=== PATIENT | male | born 1955 | race Caucasian/White ===

== ENCOUNTER 2018-08-20 04:22 | Inpatient (IN) | payer BC ==
[~2018-08-20] VITALS: Ht 177.8 cm; Wt 112.0 kg
[~2018-08-20 04:22] MED LIST: ACET500; ALBU90I INH; AMOCLA875 PO; CIPR250 PO; DOXY100 PO; HYDACE5 PO; IBUP200; IBUP800; METR500 PO; OXYACE7.5T PO; PRED10 PO; RXOXYACE PO; SULTRIDS PO
[2018-08-20 05:17] LABS: BASOPHILS ABSOLUTE AUTO 0.03 K/mm3 (0.00-0.23); BASOPHILS PERCENT AUTO 0 % (0-2); EOSINOPHILS ABSOLUTE AUTO 0.06 K/mm3 (0.00-0.68); EOSINOPHILS PERCENT AUTO 1 % (0-6); Hematocrit 41.9 % (37.0-53.0); Hemoglobin 13.8 g/dL (13.5-17.5); IMMATURE GRAN ABSOLUTE AUTO 0.08 K/mm3 (0.00-0.10); IMMATURE GRAN PERCENT AUTO 1 % (0-1); LYMPHOCYTES ABSOLUTE AUTO 1.63 K/mm3 (0.84-5.20); LYMPHOCYTES PERCENT AUTO 17 % (21-46); MONOCYTES ABSOLUTE AUTO 0.97 K/mm3 (0.16-1.47); MONOCYTES PERCENT AUTO 10 % (4-13); Mean Corpuscular HGB 32.1 pg (26.0-34.0); Mean Corpuscular HGB Conc 32.9 g/dL (31.5-36.5); Mean Corpuscular Volume 97 fL (80-100); Mean Platelet Volume 11.1 fL (9.1-12.4); NEUTROPHILS ABSOLUTE AUTO 6.88 K/mm3 (1.96-9.15); NEUTROPHILS PERCENT AUTO 71 % (41-73); Platelet Count 313 K/mm3 (150-400); RDW Coefficient Variation 12.6 % (11.7-14.2); RDW Standard Deviation 45.2 fL (35.1-46.3); White Blood Cell Count 9.65 K/mm3 (4.00-11.30)
[2018-08-20 05:39] LABS: Alanine Aminotransfer (ALT/SGP 28 U/L (12-78); Albumin/Globulin Ratio 0.7 (0.8-1.8); Alk Phos 68 U/L (50-136); Anion Gap 7 mmol/L (6-16); Aspartate Aminotrans (AST/SGOT 14 U/L (12-37); Bilirubin, Total 0.4 mg/dL (0.1-1.0); Blood Urea Nitrogen 15 mg/dL (8-24); Bun/Creatinine Ratio 17.9 (12.0-20.0); CO2, Blood 24 mmol/L (21-32); Calcium, Blood 8.4 mg/dL (8.5-10.1); Chloride, Blood 112 mmol/L (98-108); Creatinine, Blood 0.84 mg/dL (0.60-1.20); Globulin, Blood 4.1 g/dL (2.2-4.0); Glomerular Filtration Rate >60 (60-); Glucose, Blood 103 mg/dL (70-99); Potassium, Blood 4.2 mmol/L (3.5-5.5); Sodium, Blood 143 mmol/L (136-145); Total Protein, Blood 7.1 g/dL (6.4-8.2); Troponin I 0.029 ng/mL (0.000-0.040)
[2018-08-20 05:44] LABS: International Normalized Ratio 0.96; Prothrombin Time Results 10.2 Sec (9.7-11.5)
--- NOTE | 2018-08-20 09:44 | NUR ---
0900 ADMIT NOTE... PT WAS ADMITTED TO ICU-9 AND TRANFERED TO BED PER SELF. CARDIZEM GTT AT 15MG VIA L AC SITE. PT RYTHUM NOTED AND IS A. FLUTTER/FIB. PT INDICATES HE HAS HAD CHEST PAIN DURING THE LAST 2 WEEKS AND TODAY BUT NONE AT THIS TIME. PT HAS HAD A DRY NONPRODUCTIVE COUGH DURING ALL ILLNESS EPISODE. PT ALSO INDICATES HE HAS BEEN GOING TO WORK BUT WAS NOT SLEEPING AT NOC AND SOB PERSISTING CAME TO ED. INFLUENZA SWAB DONE ON ADMIT TO ICU. PT FEELS NEED TO VOID SOON. HAS NOT BEEN EATING NORMAL OR WELL LAST 2+ WEEKS. PT HAS CELL PHONE, KEYS, WALLET, GLASSES AND PT WILL COME IN AND HE WILL SEND HOME WITH HER. VS NOTED AND NO CURRENT DISTRESS.
[2018-08-20 09:57] LABS: Influenza A Negative (NEGATIVE); Influenza B Negative (NEGATIVE)
--- NOTE | 2018-08-20 10:36 | NUR ---
Echocardiogram completed.
--- NOTE | 2018-08-20 10:57 | NUR ---
PT EDUCATION GIVEN RE STOPPING SMOKING, PT EXPRESSED INTEREST AND WILLINGNESS AT THIS TIME.
--- NOTE | 2018-08-20 17:43 | NUR ---
PT AND WERE EDUCATED RE CHF AND ISSUES TO ASSIST IN PT RECOVERY AND MANAGEMENT. PT HAS JUST BEEN GIVEN PO CARDEZEM AND WILL STOP IV GTT APPROX. 1 HOUR AFTER THIS DOSE. PT IS TAKING PO WELL. VOIDING W/O DISTRESS OR PROBLEM. PT CONT TO HAVE DRY COUGH, NONPRODUCTIVE, NO RETURNING CHEST PAIN. APPROX [id number] PT WAS NOTED TO BE ATTEMPTING TO CONVERT TO NSR, SEE RHYTHUM STRIPS. AT THIS POINT PT IS IN CONTINUAL NSR WITH HR 70-80. BP IS SL ELEVATED NOTED.
--- NOTE | 2018-08-20 19:30 | NUR ---
CARE ASSUMED REPORT RECEIEVED, CARE ASSUMED AT 1900. PT RESTING QUIETLY IN BED, AROUSES EASILY UPON ENTERING ROOM. VITALS STABLE. MONITOR SHOWS NORMAL SINUS RHYTHM RATE 70'S-80. PT EDUCATED ON FALL PREVENTION AND STAND BY ASSIST FOR ADL'S AND DECLINES STATING, "I HAVE BEEN DOING IT ON MY OWN." ENCOURAGED PT TO TAKE SLOWLY AND CALL IF HE FEELS DIZZY OR SHORT OF BREATH. PT AGREEABLE. PT HAS DRY, HACKING, HARSH COUGH AND WHEEZES THROUGHOUT. 02 SAT'S GREATER THAN 90 ON ROOM AIR. PT LEFT WITH CALL LIGHT IN REACH, BED IN LOWEST POSITION.
--- NOTE | 2018-08-20 20:04 | NUR ---
CT SCAN PT TO CT WITH RETAIL ASSET PROTECTION SPECIALIST. PT TO TELEMETRY BOX, CONFIRMED WITH KATHY Riggins PCU ECHO VASCULAR TECH. STAND AND TRANSFER TO WHEELCHAIR.
--- NOTE | 2018-08-20 20:18 | NUR ---
RETURN FROM CT PT RETURNED FROM CT. STANDBY ASSIST BACK TO BED. DECLINES NEEDS AT THIS TIME.
[2018-08-21 03:30] LABS: BASOPHILS ABSOLUTE AUTO 0.04 K/mm3 (0.00-0.23); BASOPHILS PERCENT AUTO 0 % (0-2); EOSINOPHILS ABSOLUTE AUTO 0.11 K/mm3 (0.00-0.68); EOSINOPHILS PERCENT AUTO 1 % (0-6); Hematocrit 40.5 % (37.0-53.0); Hemoglobin 12.8 g/dL (13.5-17.5); IMMATURE GRAN ABSOLUTE AUTO 0.09 K/mm3 (0.00-0.10); IMMATURE GRAN PERCENT AUTO 1 % (0-1); LYMPHOCYTES PERCENT AUTO 21 % (21-46); MONOCYTES ABSOLUTE AUTO 0.99 K/mm3 (0.16-1.47); MONOCYTES PERCENT AUTO 11 % (4-13); Mean Corpuscular HGB 31.7 pg (26.0-34.0); Mean Corpuscular HGB Conc 31.6 g/dL (31.5-36.5); Mean Platelet Volume 10.8 fL (9.1-12.4); NEUTROPHILS ABSOLUTE AUTO 5.96 K/mm3 (1.96-9.15); NEUTROPHILS PERCENT AUTO 66 % (41-73); Platelet Count 309 K/mm3 (150-400); RDW Coefficient Variation 12.8 % (11.7-14.2); RDW Standard Deviation 47.9 fL (35.1-46.3); Red Blood Cell Count 4.04 M/mm3 (4.30-5.90); White Blood Cell Count 9.09 K/mm3 (4.00-11.30)
[2018-08-21 03:32] LABS: Mean Corpuscular Volume 100 fL (80-100)
[2018-08-21 03:50] LABS: Alanine Aminotransfer (ALT/SGP 27 U/L (12-78); Albumin, Blood 3.1 g/dL (3.4-5.0); Albumin/Globulin Ratio 0.8 (0.8-1.8); Alk Phos 59 U/L (50-136); Anion Gap 7 mmol/L (6-16); Aspartate Aminotrans (AST/SGOT 13 U/L (12-37); Bilirubin, Total 0.9 mg/dL (0.1-1.0); Blood Urea Nitrogen 19 mg/dL (8-24); Bun/Creatinine Ratio 18.6 (12.0-20.0); CO2, Blood 27 mmol/L (21-32); Calcium, Blood 8.3 mg/dL (8.5-10.1); Chloride, Blood 108 mmol/L (98-108); Creatinine, Blood 1.02 mg/dL (0.60-1.20); Globulin, Blood 3.8 g/dL (2.2-4.0); Glomerular Filtration Rate >60 (60-); Glucose, Blood 94 mg/dL (70-99); Magnesium, Blood 2.1 mg/dL (1.6-2.4); Potassium, Blood 3.7 mmol/L (3.5-5.5); Sodium, Blood 142 mmol/L (136-145); Total Protein, Blood 6.9 g/dL (6.4-8.2)
--- NOTE | 2018-08-21 07:34 | NUR ---
SUMMARY NO ACUTE CHANGES THROUGHOUT NIGHT. PT HAS REMAINED IN NORMAL SINUS RHYTHM THROUGHOUT SHIFT. VITALS STABLE, THOUGH BLOOD PRESSURE HAS BEEN ELEVATED THROUGHOUT NIGHT. PT HAS SLEPT SOUNDLY, AROUSING EASILY FOR REASSESSMENTS. REPORT TO YAJAIRA BELTRÁN TO ASSUME CARE.
--- NOTE | 2018-08-21 09:10 | NUR ---
DR. BOYER AT BEDSIDE FOR EVALUATION. INFORMED DR. BOYER OF ELEVATED BP'S, WILL PLACE ORDER FOR MEDICATIONS TO CONTROL BP. NEW ORDER FOR STATUS CHANGE TO MEDICAL WITH TELEMETRY.
--- NOTE | 2018-08-21 11:21 | NUR ---
Initial Visit: Palliative care consult received for advanced care planning, cardiac, new diagnosis. Pt is alert, oriented, pleasant. He reports that he does not have pain, but he does feel "just a little" heavy in the chest - he reports that this is not new, and it has been a symptom for the last 3 weeks - it is improving. Pt breathing easily at this time. Reviewed CHF, afib with patient. Explained EF and overall heart picture. Reviewed risks of the disease, risk of not taking medications and not having a PCP. Advised that he will need to be on medications everyday to preserve his remaining heart function, that he will need to be vigilant to protect his heart. Discussed fluid collection r/t CHF, frequent weighing, reporting changes or concerns to PCP right away. He verbalizes understanding. He is hoping that he will only need to see the doctor once every year. I tell him that doctors have different requirements, depends on symptoms and stable disease. Suggested also that he quit smoking. He states, "I think I've already done that. It's been 3 weeks because if you can't breathe, you can't smoke!" Will remain avialable.
--- NOTE | 2018-08-21 12:37 | NUR ---
Jose is Episcopal and responded well to me. He tells me he is not used to being sick. "I don't even have a doctor." He admits his new heart issues are hindering his active life. He is more irritated than worried. He has a good marriage and enjoys spending time with his adult children and grandkids. He also admits he does not want his illness to change anything. When I asked if he meant he intended to be noncompliant with physician's reccomendations, he says again he does not want illness to limit or change his lifestyle. He tells me he is not afraid of and knows where he is going when he dies. He does not like being hospitalized. All that said, he was soft-spoken and pleasant. He allowed me to pray for him. I will remain available to pt and family.
--- NOTE | 2018-08-21 21:00 | NUR ---
CARE ASSUMED REPORT RECEIVED, CARE ASSUMED AT 1900. VITALS STABLE. PT PROVIDED WITH SNACK, DENIES FURTHER NEEDS. SEE ASSESSMENT. IN AND OUT THROUGHOUT EVENING.
--- NOTE | 2018-08-21 21:30 | NUR ---
MEDICATION CONCERNS PER PATIENT PT CONCERNED ABOUT RUIZ OF ANTICOAGULATION THERAPY. PT REQUESTED THAT MD BE COMMUNICATED WITH REGARDING DISCHARGE MEDICATIONS AND POSSIBLE THERAPY OPTIONS. PT ALSO STATED HE WOULD DISCUSS WITH MD DURING ROUNDING. PT STATES HE WILL HAVE COMPLIANCE ISSUES IF HE IS UNABLE TO FIND A ANTICOAGULATION OPTION THAT IS COVERED BY HIS INSURANCE AND COST EFFECTIVE. WILL DISCUSS WITH DAY SHIFT RN TO FOLLOW UP WITH PRIMARY DAY SHIFT HOSPITALIST.
--- NOTE | 2018-08-22 01:14 | NUR ---
EDUCATION - MEDS/DIAGNOSIS DURING MEDICATION ADMINISTRATION PT DENIES UNDERSTANDING OF MEDICATIONS. PROVIDED WITH EDUCATION MULTIPLE TIMES THROUGH. DISCUSSED ATRIAL FIBRILLATION, HIGH BLOOD PRESSURE, CARDIAC DIET WITH PATIENT. PT STATES HE DOES NOT KNOW THE DIFFERENCE BETWEEN BLOOD PRESSURE AND HEART RATE. PT EDUCATED VERBALLY BUT UNABLE TO RE-STATE EDUCATION. CLINICAL GOMEZ PATIENT EDUCATION HANDOUT PROVIDED ON HYPERTENSION, A-FIB, DILTIAZEM, COZAAR, AND XARELTO CURRENT HOSPITAL REGIME.
[2018-08-22 03:24] LABS: BASOPHILS ABSOLUTE AUTO 0.03 K/mm3 (0.00-0.23); BASOPHILS PERCENT AUTO 1 % (0-2); EOSINOPHILS ABSOLUTE AUTO 0.09 K/mm3 (0.00-0.68); EOSINOPHILS PERCENT AUTO 2 % (0-6); Hematocrit 40.1 % (37.0-53.0); Hemoglobin 13.1 g/dL (13.5-17.5); IMMATURE GRAN ABSOLUTE AUTO 0.05 K/mm3 (0.00-0.10); IMMATURE GRAN PERCENT AUTO 1 % (0-1); LYMPHOCYTES ABSOLUTE AUTO 1.53 K/mm3 (0.84-5.20); LYMPHOCYTES PERCENT AUTO 26 % (21-46); MONOCYTES ABSOLUTE AUTO 0.65 K/mm3 (0.16-1.47); MONOCYTES PERCENT AUTO 11 % (4-13); Mean Corpuscular HGB 31.7 pg (26.0-34.0); Mean Corpuscular HGB Conc 32.7 g/dL (31.5-36.5); Mean Platelet Volume 10.5 fL (9.1-12.4); NEUTROPHILS ABSOLUTE AUTO 3.63 K/mm3 (1.96-9.15); NEUTROPHILS PERCENT AUTO 61 % (41-73); Platelet Count 285 K/mm3 (150-400); RDW Coefficient Variation 12.5 % (11.7-14.2); Red Blood Cell Count 4.13 M/mm3 (4.30-5.90); White Blood Cell Count 5.98 K/mm3 (4.00-11.30)
[2018-08-22 03:25] LABS: Mean Corpuscular Volume 97 fL (80-100)
[2018-08-22 03:42] LABS: Alanine Aminotransfer (ALT/SGP 29 U/L (12-78); Albumin, Blood 2.9 g/dL (3.4-5.0); Albumin/Globulin Ratio 0.8 (0.8-1.8); Alk Phos 65 U/L (50-136); Anion Gap 6 mmol/L (6-16); Aspartate Aminotrans (AST/SGOT 18 U/L (12-37); Bilirubin, Total 0.6 mg/dL (0.1-1.0); Blood Urea Nitrogen 19 mg/dL (8-24); CO2, Blood 26 mmol/L (21-32); Calcium, Blood 8.3 mg/dL (8.5-10.1); Chloride, Blood 110 mmol/L (98-108); Creatinine, Blood 0.86 mg/dL (0.60-1.20); Globulin, Blood 3.7 g/dL (2.2-4.0); Glomerular Filtration Rate >60 (60-); Glucose, Blood 112 mg/dL (70-99); Magnesium, Blood 2.2 mg/dL (1.6-2.4); Potassium, Blood 4.1 mmol/L (3.5-5.5); Sodium, Blood 142 mmol/L (136-145); Total Protein, Blood 6.6 g/dL (6.4-8.2)
--- NOTE | 2018-08-22 06:52 | NUR ---
SUMMARY NO ACUTE CHANGES SINCE PREVIOUS NOTE. VITALS STABLE. HR REMAINS IN NORMAL SINUS RHYTHM. THIS MORNING PT NOTED TO BE READING EDUCATION MATERIALS PROVIDED. PT DECLINES QUESTIONS.
--- NOTE | 2018-08-22 09:47 | NUR ---
PT A/O, UP TALKING ON THE PHONE WITH FAMILY, DENIES PAIN OR DISTRESS. VS NOTED. DR BOYER ADDRESSED XARALTO ORDER AND PT'S QUESTIONING ABILITY TO PAY FOR THIS, NUCLEAR TECHNICIAN CALLED TO FOLLOW UP.
[2018-08-22] MEDS ORDERED: ALBU90OI INH (13:19)
[2018-08-22] MEDS ORDERED: XARELTO20 MG PO (13:20)
[2018-08-22] MEDS ORDERED: LOSA50 PO (13:20)
[2018-08-22] MEDS ORDERED: AZIT250 PO (13:22)
[2018-08-22] MEDS ORDERED: DILTIAZEM 24HR300 M2 PO (13:24)
--- NOTE | 2018-08-22 14:04 | NUR ---
PT DISCHARGE INSTRUCTIONS GIVEN, IV SITES REMOVED X2 INTACT AND INSTRUCTED ABOUT PT BEING ON ANTICOAGULANT, DRESSED, TOOK PERSONAL BELONGINGS AND AMBULATED TO [facility].
== END 2018-08-22 14:00 | disposition home or self-care (01) | DRG 308 ==
LOC: ER 04:22 → ERHOLD 06:27 → ICUW 06:27
PROVIDERS: Emergency Medicine; Internal Medicine; ADMIT Hospitalist
PROC: B246ZZ4 Ultrasonography of Right and Left Heart, Transesophageal (ICD-10-PCS; principal; 2018-08-20)
DX: I48.2 Chronic atrial fibrillation (principal); J18.9 Pneumonia, unspecified organism; I50.9 Heart failure, unspecified; J44.9 Chronic obstructive pulmonary disease, unspecified; I48.91 Unspecified atrial fibrillation; F17.210 Nicotine dependence, cigarettes, uncomplicated
CPT/HCPCS: 36415; 71046; 71260; 80053; 83735; 83880; 84443; 84484; 85025; 85610; 87804; 93005; 93010; 93306; 94640; 94760; 96361; 96365; 96366; 96375; 96376; 99285-25; J0153; J0456; J0696; J1650; J1940; J7030; J7050; Q9967

== ENCOUNTER → 2019-10-18 | Outpatient (CLI) | payer BC ==
[~2019-10-18] MED LIST changes: +ALBU90OI INH; +AZIT250 PO; +DILTIAZEM 24HR300 M2 PO; +LOSA50 PO; +XARELTO20 MG PO
[2019-10-18 13:54] LABS: BASOPHILS ABSOLUTE AUTO 0.05 K/mm3 (0.00-0.23); BASOPHILS PERCENT AUTO 1 % (0-2); EOSINOPHILS ABSOLUTE AUTO 0.14 K/mm3 (0.00-0.68); EOSINOPHILS PERCENT AUTO 2 % (0-6); Hematocrit 44.3 % (37.0-53.0); Hemoglobin 14.4 g/dL (13.5-17.5); IMMATURE GRAN ABSOLUTE AUTO 0.06 K/mm3 (0.00-0.10); IMMATURE GRAN PERCENT AUTO 1 % (0-1); LYMPHOCYTES ABSOLUTE AUTO 1.57 K/mm3 (0.84-5.20); LYMPHOCYTES PERCENT AUTO 22 % (21-46); MONOCYTES ABSOLUTE AUTO 0.75 K/mm3 (0.16-1.47); MONOCYTES PERCENT AUTO 11 % (4-13); Mean Corpuscular HGB 31.7 pg (26.0-34.0); Mean Corpuscular HGB Conc 32.5 g/dL (31.5-36.5); Mean Corpuscular Volume 98 fL (80-100); Mean Platelet Volume 12.3 fL (9.1-12.4); NEUTROPHILS ABSOLUTE AUTO 4.44 K/mm3 (1.96-9.15); NEUTROPHILS PERCENT AUTO 63 % (41-73); Platelet Count 223 K/mm3 (150-400); RDW Coefficient Variation 12.9 % (11.7-14.2); RDW Standard Deviation 46.5 fL (35.1-46.3); Red Blood Cell Count 4.54 M/mm3 (4.30-5.90); White Blood Cell Count 7.01 K/mm3 (4.00-11.30)
[2019-10-18 14:10] LABS: Alanine Aminotransfer (ALT/SGP 26 U/L (12-78); Albumin, Blood 3.6 g/dL (3.4-5.0); Albumin/Globulin Ratio 0.9 (0.8-1.8); Alk Phos 73 U/L (50-136); Anion Gap 4 mmol/L (6-16); Aspartate Aminotrans (AST/SGOT 18 U/L (12-37); Bilirubin, Total 0.5 mg/dL (0.1-1.0); Blood Urea Nitrogen 12 mg/dL (8-24); Bun/Creatinine Ratio 13.8 (12.0-20.0); CHOL/HDL RATIO 3.6; CO2, Blood 25 mmol/L (21-32); Calcium, Blood 8.6 mg/dL (8.5-10.1); Chloride, Blood 108 mmol/L (98-108); Cholesterol 174 mg/dL (50-200); Creatinine, Blood 0.87 mg/dL (0.60-1.20); Globulin, Blood 3.8 g/dL (2.2-4.0); Glomerular Filtration Rate >60 (60-); Glucose, Blood 93 mg/dL (70-99); HDL Cholesterol 48 mg/dL (>39); LDL/HDL RATIO 2.3; Low Density Lipoprotein Chol 110 mg/dL (0-110); Potassium, Blood 4.2 mmol/L (3.5-5.5); Sodium, Blood 137 mmol/L (136-145); Total Protein, Blood 7.4 g/dL (6.4-8.2); Triglycerides 81 mg/dL (30-160); Very Low Density Lipoprot Chol 16 mg/dL (6-32)
== END ==
LOC: LAB 08:30 → LAB SHORT 08:30
PROVIDERS: Family Medicine
DX: I10 Essential (primary) hypertension (principal)
CPT/HCPCS: 80053; 80061; 85025

== ENCOUNTER 2021-10-14 16:23 | Inpatient (IN) | payer SELFPAY ==
[~2021-10-14] VITALS: Ht 180.3 cm; Wt 116.5 kg
[2021-10-14 16:58] LABS: Hemoglobin 14.7 g/dL (13.5-17.5); Mean Corpuscular HGB 32.2 pg (26.0-34.0); Mean Corpuscular HGB Conc 33.4 g/dL (31.5-36.5); Mean Corpuscular Volume 97 fL (80-100); Mean Platelet Volume 11.3 fL (9.1-12.4); Platelet Count 198 K/mm3 (150-400); RDW Coefficient Variation 12.5 % (11.7-14.2); RDW Standard Deviation 45.1 fL (35.1-46.3); Red Blood Cell Count 4.56 M/mm3 (4.30-5.90)
[2021-10-14 17:00] LABS: White Blood Cell Count 8.68 K/mm3 (4.00-11.30)
[2021-10-14 17:27] LABS: Influenza A, PCR NEGATIVE (NEGATIVE); Influenza B, PCR NEGATIVE (NEGATIVE); Resp Syncytial Virus, PCR NEGATIVE (NEGATIVE); SARS-Cov-2 (COVID-19) PCR, MMC NEGATIVE (NEGATIVE)
[2021-10-14 17:28] LABS: BASOPHILS PERCENT MAN 0 % (0-2); EOSINOPHILS PERCENT MAN 0 % (0-6); LYMPHOCYTES ABSOLUTE MAN 0.69 K/mm3 (0.84-5.20); LYMPHOCYTES PERCENT MAN 8 % (21-46); MONOCYTES ABSOLUTE MAN 1.04 K/mm3 (0.16-1.47); MONOCYTES PERCENT MAN 12 % (4-13); NEUTROPHILS ABSOLUTE MAN 6.94 K/mm3 (1.96-9.15); SEG NEUTROPHILS PERCENT MAN 80 % (41-73); TOTAL CELLS COUNTED 100
[2021-10-14 17:31] LABS: Albumin, Blood 3.3 g/dL (3.4-5.0); Albumin/Globulin Ratio 0.8 (0.8-1.8); Bilirubin, Total 0.7 mg/dL (0.1-1.0); Bun/Creatinine Ratio 11.6 (12.0-20.0); Calcium, Blood 8.9 mg/dL (8.5-10.1); Creatinine, Blood 0.69 mg/dL (0.60-1.20); Globulin, Blood 4.2 g/dL (2.2-4.0); Potassium, Blood 4.3 mmol/L (3.5-5.5); Total Protein, Blood 7.5 g/dL (6.4-8.2)
--- NOTE | 2021-10-14 22:51 | NUR ---
ASSUMPTION OF CARE Assumed care of pt at 2146. Breathing with obvious wheezes, productive cough producing white sputum. Maintains above 93% on RA, c/o orthopnea, obvious tachypnea noted. HR in 140's, ANGLE if Aflutter or ST at this moment. Patient sitting up in bed, speaking to on telephone.
[2021-10-15 04:08] LABS: BASOPHILS ABSOLUTE AUTO 0.01 K/mm3 (0.00-0.23); BASOPHILS PERCENT AUTO 0 % (0-2); EOSINOPHILS PERCENT AUTO 0 % (0-6); Hematocrit 44.3 % (37.0-53.0); Hemoglobin 14.7 g/dL (13.5-17.5); IMMATURE GRAN ABSOLUTE AUTO 0.04 K/mm3 (0.00-0.10); IMMATURE GRAN PERCENT AUTO 1 % (0-1); LYMPHOCYTES ABSOLUTE AUTO 0.49 K/mm3 (0.84-5.20); LYMPHOCYTES PERCENT AUTO 8 % (21-46); MONOCYTES ABSOLUTE AUTO 0.12 K/mm3 (0.16-1.47); MONOCYTES PERCENT AUTO 2 % (4-13); Mean Corpuscular HGB 32.1 pg (26.0-34.0); Mean Corpuscular HGB Conc 33.2 g/dL (31.5-36.5); Mean Corpuscular Volume 97 fL (80-100); Mean Platelet Volume 11.8 fL (9.1-12.4); NEUTROPHILS ABSOLUTE AUTO 5.68 K/mm3 (1.96-9.15); NEUTROPHILS PERCENT AUTO 90 % (41-73); Platelet Count 204 K/mm3 (150-400); RDW Coefficient Variation 12.7 % (11.7-14.2); RDW Standard Deviation 45.3 fL (35.1-46.3); Red Blood Cell Count 4.58 M/mm3 (4.30-5.90); White Blood Cell Count 6.34 K/mm3 (4.00-11.30)
[2021-10-15 04:27] LABS: Albumin, Blood 3.2 g/dL (3.4-5.0); Albumin/Globulin Ratio 0.7 (0.8-1.8); Bilirubin, Total 0.5 mg/dL (0.1-1.0); Bun/Creatinine Ratio 13.9 (12.0-20.0); Creatinine, Blood 0.72 mg/dL (0.60-1.20); Globulin, Blood 4.3 g/dL (2.2-4.0); Potassium, Blood 3.8 mmol/L (3.5-5.5); Total Protein, Blood 7.5 g/dL (6.4-8.2)
--- NOTE | 2021-10-15 05:59 | NUR ---
SHIFT SUMMARY Patient remains A/Ox4 t/o shift. Maintains over 93% on RA, with Exp wheezes hear t/o all lung bartlett. Congested cough producing white sputum. HR 140's - cardizem push ineffective. Started on Cardizem gtt, currently at 15mg/hr. HR 99 and showing Aflutter. BP stable with SBP 130's. Patient states the reason he is no longer on meds or sees a PCP is lack of insurance and cost of medication. SS consult entered.
--- NOTE | 2021-10-15 17:38 | NUR ---
SHIFT SUMMARY PT IS ALERT AND ORIENTED X4 AND IN GOOD HUMOR. HE IS VERY POSITIVE AND INDEPENDENT IN HIS ROOM. CARDIZEM GTT @15 UPON MY ARRIVAL, WE DECREASED TO 10 AROUND NOON BC HE WAS SUSTAINING IN THE 90'S AFLUTTER BUT INCREASED BACK TO THE 140'S. CARDIZEM GTT WAS TURNED BACK TO 15 @1840. HE HAS EXPIRATORY WHEEZES AND IS SATTING >92% ON RA. I WILL CONTINUE TO MONITOR HIS HR AND CARDIZEM GTT ORDERED, NOTICING HE IS STILL IN AFLUTTER.
[2021-10-16 03:27] LABS: Hematocrit 42.9 % (37.0-53.0); Hemoglobin 14.3 g/dL (13.5-17.5); Mean Corpuscular HGB 32.1 pg (26.0-34.0); Mean Corpuscular HGB Conc 33.3 g/dL (31.5-36.5); Mean Corpuscular Volume 96 fL (80-100); Mean Platelet Volume 11.5 fL (9.1-12.4); Platelet Count 241 K/mm3 (150-400); RDW Coefficient Variation 12.7 % (11.7-14.2); Red Blood Cell Count 4.45 M/mm3 (4.30-5.90); White Blood Cell Count 12.67 K/mm3 (4.00-11.30)
[2021-10-16 03:58] LABS: Albumin, Blood 3.2 g/dL (3.4-5.0); Anion Gap 8 mmol/L (6-16); Blood Urea Nitrogen 29 mg/dL (8-24); CO2, Blood 25 mmol/L (21-32); Calcium, Blood 8.9 mg/dL (8.5-10.1); Chloride, Blood 105 mmol/L (98-108); Creatinine, Blood 0.88 mg/dL (0.60-1.20); Glomerular Filtration Rate 96 (60-); Glucose, Blood 149 mg/dL (70-99); Phosphorus, Blood 3.2 mg/dL (2.5-4.9); Potassium, Blood 4.1 mmol/L (3.5-5.5); Sodium, Blood 138 mmol/L (136-145)
--- NOTE | 2021-10-16 06:12 | NUR ---
SHIFT SUMMARY PT IS ALERT AND ORIENTED. VITALS ARE STABLE AND IS ON ROOM AIR. DENIES CHEST PAIN AND REPORTS SOME SOB A TIMES. PT IS AD-ABRAN IN ROOM AND USES URINAL AT BEDSIDE. CARDIZEM GTT IS AT 15 WITH RATE OF 110-120'S. CALL LIGHT IS WITHIN REACH.
--- NOTE | 2021-10-16 09:05 | NUR ---
AM NOTE: PATIENT ALERT AND ORIENTED X4. NEURO WNL. ABLE TO STAND AND USE URINAL UNASSISTED. DENIES NUMBNESS/TINGLING. ON ROOM AIR SATING ABOVE 94%. DRY/HARSH/HACKING COUGH. DENIES SPUTUM. TELE SHOWING AFLUTTER WITH HR 110'S AT REST AND UP TO 130-140'S WITH ACTIVITY. DENIES CHEST PAIN/PRESSURE. BP STABLE. CARDIZEM DRIP INFUSING. PLANS TO TRANSITION TO ORAL CARDIZEM THIS AM. DENIES ABDOMINAL PAIN/NAUSEA. SKIN OVERALL C/D/I. LARGE LUMP RIGHT LATERAL SIDE OF NECK. CT THIS AM OF NECK. DENIES PAIN TO SITE. TOLERATING PO DIET. DENIES NEEDS AT THIS TIME. WILL CONTINUE TO MONITOR.
--- NOTE | 2021-10-16 11:14 | NUR ---
UPDATE: CARDIZEM DRIP TURNED OFF AT 1034, SEE EMAR. AT REST PATIENT HR 100-110'S. WITH ACTIVITY PATIENT HR 130-140'S, NOT SUSTAINING. DENIES CHEST PAIN/PRESSURE. BP REMAINS STABLE. CT OF NECK COMPLETED. WILL CONTINUE TO MONITOR HR.
--- NOTE | 2021-10-16 17:18 | NUR ---
SHIFT SUMMARY: NO ACUTE CHANGES. SEE PREVIOUS AM NOTE. REMAINS ALERT AND ORIENTED X4. ANXIOUS TO GET HOME. PATIENT STATES "IM LEAVING TOMORROW ONE WAY OR ANOTHER". REMAINS ON ROOM AIR. MUCINEX ADDED TO HELP WITH CLEARING SECRETIONS. PATIENT STATES HE FEELS IT HAS IMPROVED. TELE SHOWING AFLUTTER. HR 90-120'S. PRN CARDIZEM PO GIVEN AROUND 1510, SEE EMAR. HR STILL INCREASING TO 130'S WHEN UP MOVING AROUND, NOT SUSTAINING. IND TO BATHROOM. CT OF NECK AND ECHO COMPLETED TODAY. ANTIBIOTICS INFUSING AT THIS TIME. DENIES PAIN/NEEDS AT THIS TIME. WILL CONTINUE TO MONITOR AND REPORT OFF TO ONCOMING RN.
--- NOTE | 2021-10-17 05:14 | NUR ---
SHIFT SUMMARY PT IS ALERT AND ORIENTED, AD ABRAN IN ROOM. VITALS HAVE BEEN STABLE AND IS ON ROOM AIR WITH SATS ABOVE 92%. PT DENIES CHEST PAIN AND REPORTS SOME SOB. HEART RATE HAS SUSTAINED BELOW 120 AND HAS ONLY BEEN MEDICATED WITH PRN HR MED ONCE PER ORDER. HE REPORTS THAT COUGH IS NOW BECOMING MORE PRODUCTIVE AND IS FEELING BETTER BUT STILL SOB AT TIMES. CALL LIGHT IS WITHIN REACH.
--- NOTE | 2021-10-17 09:10 | NUR ---
AM NOTE: PATIENT ALERT AND ORIENTED X4. NEURO WNL. UP IND IN ROOM. ON ROOM AIR. TELE SHOWING AFLUTTER WITH HR 110'S TO 120'S. INCREASE DOSE OF CARDIZEM GIVEN THIS AM PER ORDERS. DENIES CHEST PAIN/PRESSURE. BP STABLE. DENIES ABDOMINAL PAIN/NAUSEA. INTAKE WNL. MEASURING OUTPUT. CALL LIGHT IN REACH. ANXIOUS TO GET HOME. SKIN OVERALL C/D/I. REDNESS NOTED THROUGHOUT. LATERAL RIGHT SIDE OF NECK, LARGE LUMP - SEE CT RESULTS. DENIES PAIN. DENIES NEEDS AT THIS TIME. SALINE LOCKED. WILL CONTINUE TO MONTIOR CALL LIGHT IN REACH.
--- NOTE | 2021-10-17 17:17 | NUR ---
PATIENT ARRIVED ON THE MEDICAL FLOOR FROM PCU AT 1710 TODAY. PATIENT SEEMS TO BE ANXIOUS ABOUT STAYING ANOTHER NIGHT IN THE HOSPITAL.INDEPENDENT IN THE ROOM. CURRENTLY AFLUTTER AT 103 ON TELE. WILL CONTINUE TO MONITOR PATIENT.
--- NOTE | 2021-10-17 18:34 | NUR ---
TRANSFER NOTE: NO ACUTE CHANGES SEE AM NOTE. NO CHANGES TO RESPIRATORY STATUS. REMAINS AFLUTTER ON TELE AVERAGING 90-100'S. AT REST DOWN TO 80'S. VITAL SIGNS REMAINS STABLE OTHERWISE. LLEFT UNIT VIA WHEELCHAIR WITH ALL PERSONAL BELONGINGS.
--- NOTE | 2021-10-17 22:30 | NUR ---
ALERTED TO HR TRENDING UPWARD AFTER RECIEVING PRN CARDIZEM W/HS MEDS. PT REMAINS AFLUTTER BUT IS SUSTAINING 130'S-140'S AT THIS TIME. NEW ORDER RECIEVED FOR METROPROLOL IV PRN. WILL ADMIN MED AND MONITOR FOR AFFECT.
--- NOTE | 2021-10-17 23:31 | NUR ---
PRN METOPROLOL RECIEVED FOR HR 140'S BPM. PT ALSO ADMITTED TO POSS WITHDRAWAL FROM ETOH AND NICOTINE. HE CONT'S TO REFUSE NICOTINE PATCH BUT AGREED TO TRY LIBRIUM PRN FOR CIWA 6 FROM ANXIETY, TREMOR AND SLIGHT DIAPHORESIS. WCTM FOR AFFECT.
--- NOTE | 2021-10-18 00:02 | NUR ---
PT CONT'S AFLUTTER BUT HR IMPROVED TO 90'S-LOW 100'S BPM AFTER RECIEVING PRN METOPROLOL. PT SLEEPING W/O S/S DISTRESS.
--- NOTE | 2021-10-18 04:31 | NUR ---
SUMMARY: A/OX4, INDEPENDENT IN ROOM AND CALLS APPROPRIATELY TO SPECIFY NEEDS. PT DENIES DYSPNEA AND SOB BUT HAS TACHY SHALLOW RESPS AT TIMES AND OCC DRY HACKING COUGH. EXP WHEEZE PERSISTS BUT BX TX'S PROVIDED BY RT FOR SOME IMPROVEMENT, SPO2 WNL ON RA. HE REMAINS AFLUTTER ON TELEMETRY BUT HR TRENDED UPWARD TO 120'S BPM AT START OF SHIFT W/PRN CARDIZEM PO RECIEVED FOR NO EFFECT. PT BEGAN SUSTAINING 130'S-140'S BPM W/PRN METOPROLOL IV RX'D AND RECIEVED FOR GOOD EFFECT, HR NOW 90'S-100'S W/O S/S CARDIAC DISTRESS. PT ALSO REPORTED POSSIBLE ETOH/NICOTINE WITHDRAWAL. CIWA 6 FOR TREMOR, ANXIETY AND DIAPHORESIS W/PRN LIBRIUM GIVEN FOR IMPROVEMENT. NO ACUTE CHANGES, VSS AND AFEBRILE. PROBABLE D/C HOME TODAY. WCTM AND REPORT TO DAY RN.
[2021-10-18 05:34] LABS: Albumin, Blood 3.1 g/dL (3.4-5.0); Anion Gap 3 mmol/L (6-16); Blood Urea Nitrogen 27 mg/dL (8-24); CO2, Blood 31 mmol/L (21-32); Calcium, Blood 8.7 mg/dL (8.5-10.1); Chloride, Blood 106 mmol/L (98-108); Creatinine, Blood 0.85 mg/dL (0.60-1.20); Glomerular Filtration Rate 97 (60-); Glucose, Blood 116 mg/dL (70-99); Phosphorus, Blood 3.2 mg/dL (2.5-4.9); Potassium, Blood 4.9 mmol/L (3.5-5.5); Sodium, Blood 140 mmol/L (136-145)
[2021-10-18] MEDS ORDERED: ELIQUIS5 M2 PO (13:56)
[2021-10-18] MEDS ORDERED: FURO20 PO (13:57)
[2021-10-18] MEDS ORDERED: DILT180 PO (13:57)
[2021-10-18] MEDS ORDERED: GUAI600T33 PO (13:58)
[2021-10-18] MEDS ORDERED: POLYETHYLENE G500 G1 PO (13:59)
[2021-10-18] MEDS ORDERED: Prednisone10 M1 PO (14:01)
[2021-10-18] MEDS ORDERED: ALBU90OI INH (14:02)
[2021-10-18] MEDS ORDERED: TRELEGY ELLIPT1 EACH INH (14:03)
[2021-10-18] MEDS ORDERED: Lopressor 25 mg25 MG PO (14:04)
[2021-10-18] MEDS ORDERED: CEFD300 PO (14:07)
--- NOTE | 2021-10-18 15:59 | NUR ---
D/C TO HOME WITH . IV REMOVED WNL.
== END 2021-10-18 15:57 | disposition home or self-care (01) | DRG 871 ==
LOC: ER 16:23 → PCU 18:51 → MEDS 10-17 17:03 → ENPENDDIS 10-18 15:32 → MEDS 10-18 15:57
PROVIDERS: Internal Medicine; Physician Assistant; ADMIT Internal Medicine
PROC: HZ2ZZZZ Detoxification Services for Substance Abuse Treatment (ICD-10-PCS; principal; 2021-10-14)
PROC: 3E03329 Introduction of Other Anti-infective into Peripheral Vein, Percutaneous Approach (ICD-10-PCS; 2021-10-14)
DX: A41.9 Sepsis, unspecified organism (principal); J18.9 Pneumonia, unspecified organism; I50.33 Acute on chronic diastolic (congestive) heart failure; I42.9 Cardiomyopathy, unspecified; J44.1 Chronic obstructive pulmonary disease with (acute) exacerbation; J44.0 Chronic obstructive pulmonary disease with (acute) lower respiratory infection; I48.92 Unspecified atrial flutter; F10.139 Alcohol abuse with withdrawal, unspecified; Z20.822 Contact with and (suspected) exposure to COVID-19; D17.0 Benign lipomatous neoplasm of skin and subcutaneous tissue of head, face and neck; I34.0 Nonrheumatic mitral (valve) insufficiency; I11.0 Hypertensive heart disease with heart failure; F17.210 Nicotine dependence, cigarettes, uncomplicated; J45.909 Unspecified asthma, uncomplicated; I48.91 Unspecified atrial fibrillation; Z79.2 Long term (current) use of antibiotics; Z79.01 Long term (current) use of anticoagulants; Z79.899 Other long term (current) drug therapy
CPT/HCPCS: 0241U; 36415; 70491; 71045; 80053; 80069; 83880; 84439; 84443; 84484; 85025; 85027; 87070; 87205; 93005; 93010; 93306; 94640; 94644; 94664; 94760; 94762; 96361; 96372; 96374; 96375; 99285-25; A9270; J0456; J0696; J1650; J1940; J2930; J7030; J7050; J7512; Q9967

== ENCOUNTER 2021-11-25 00:28 | Inpatient (IN) | payer SELFPAY ==
[~2021-11-25] VITALS: Ht 180.3 cm; Wt 115.0 kg
[~2021-11-25 00:28] MED LIST changes: +CEFD300 PO; +DILT180 PO; +ELIQUIS5 M2 PO; +FURO20 PO; +GUAI600T33 PO; +Lopressor 25 mg25 MG PO; +POLYETHYLENE G500 G1 PO; +Prednisone10 M1 PO; +TRELEGY ELLIPT1 EACH INH
[2021-11-25 01:19] LABS: BASOPHILS ABSOLUTE AUTO 0.04 K/mm3 (0.00-0.23); BASOPHILS PERCENT AUTO 1 % (0-2); EOSINOPHILS ABSOLUTE AUTO 0.06 K/mm3 (0.00-0.68); EOSINOPHILS PERCENT AUTO 1 % (0-6); Hematocrit 44.4 % (37.0-53.0); Hemoglobin 14.5 g/dL (13.5-17.5); IMMATURE GRAN ABSOLUTE AUTO 0.04 K/mm3 (0.00-0.10); IMMATURE GRAN PERCENT AUTO 1 % (0-1); LYMPHOCYTES ABSOLUTE AUTO 1.63 K/mm3 (0.84-5.20); LYMPHOCYTES PERCENT AUTO 22 % (21-46); MONOCYTES ABSOLUTE AUTO 0.82 K/mm3 (0.16-1.47); MONOCYTES PERCENT AUTO 11 % (4-13); Mean Corpuscular HGB 31.7 pg (26.0-34.0); Mean Corpuscular HGB Conc 32.7 g/dL (31.5-36.5); Mean Corpuscular Volume 97 fL (80-100); Mean Platelet Volume 11.3 fL (9.1-12.4); NEUTROPHILS ABSOLUTE AUTO 4.89 K/mm3 (1.96-9.15); NEUTROPHILS PERCENT AUTO 65 % (41-73); Platelet Count 219 K/mm3 (150-400); RDW Coefficient Variation 13.2 % (11.7-14.2); RDW Standard Deviation 47.2 fL (35.1-46.3); Red Blood Cell Count 4.57 M/mm3 (4.30-5.90); White Blood Cell Count 7.48 K/mm3 (4.00-11.30)
[2021-11-25 01:46] LABS: Albumin, Blood 3.3 g/dL (3.4-5.0); Albumin/Globulin Ratio 0.9 (0.8-1.8); Bilirubin, Total 0.4 mg/dL (0.1-1.0); Bun/Creatinine Ratio 20.6 (12.0-20.0); Calcium, Blood 8.7 mg/dL (8.5-10.1); Creatinine, Blood 0.82 mg/dL (0.60-1.20); Globulin, Blood 3.6 g/dL (2.2-4.0); Potassium, Blood 4.6 mmol/L (3.5-5.5); Total Protein, Blood 6.9 g/dL (6.4-8.2)
--- NOTE | 2021-11-25 13:45 | NUR ---
PCU ADMIT PT BROUGHT TO PCU-20 BY [facility] FROM ER @ APPROX 1000. PT A&O X4, ABLE TO STAND & INDEPENDENTLY TRANSFER FROM [facility] TO PCU BED. MONITOR SHOWING AFIB / AFLUTTER, HR 80's-90's W/ CARDIZEM GTT INFUSING @ 15 MG/HR UPON ARRIVAL TO UNIT. PT REPORTING NOT TAKING PREVIOUSLY PRESCRIBED MEDICATIONS D/T INABILITY TO PAY FOR MEDICATIONS & "DIDN'T THINK IT WAS REALLY IMPORTANT, BUT I KNOW NOW THAT IT ACTUALLY IS." PT AGREEABLE TO TAKING MEDICATIONS ORDERED & ASKING WHEN HE GETS TO GO HOME.
--- NOTE | 2021-11-25 18:24 | NUR ---
SHIFT SUMMARY PT CONTINUES TO BE A&O X4. VSS. MONITOR SHOWING AFIB/AFLUTTER, HR 80's-90's W/ CARDIZEM GTT TITRATED OFF. SPO2 > 92% ON RA. FLUID RESTRICTION IN PLACER PER MD ORDER. PT ENCOURAGED & REMINDED TO USE URINAL AT BEDSIDE FOR I/O MONITORING W/ PT FORGETTING TO USE URINAL & USING BATHROOM INSTEAD AT TIMES. PT INDEPENDENT IN RM, # OF UNDOCUMENTED VOIDS UNKNOWN.
[2021-11-26 04:56] LABS: Albumin, Blood 3.2 g/dL (3.4-5.0); Anion Gap 6 mmol/L (6-16); Blood Urea Nitrogen 19 mg/dL (8-24); Bun/Creatinine Ratio 19.4 (12.0-20.0); CO2, Blood 30 mmol/L (21-32); Chloride, Blood 105 mmol/L (98-108); Creatinine, Blood 0.98 mg/dL (0.60-1.20); Glomerular Filtration Rate 86 (60-); Glucose, Blood 97 mg/dL (70-99); Phosphorus, Blood 3.9 mg/dL (2.5-4.9); Potassium, Blood 3.9 mmol/L (3.5-5.5); Sodium, Blood 141 mmol/L (136-145)
--- NOTE | 2021-11-26 05:28 | NUR ---
SHIFT SUMMARY PT AXO. INDEPENDENT. RA. IN AFLUTTER, WITH RATES TRENDING UPWARDS THAT REQUIRED A 5MG LOPRESSOR PUSH AND A 20MG CARDIZEM PUSH TO EFFECT. HR NOW CURRENTLY 100 FROM 130'S EARLIER IN THE SHIFT. BP SOMEWHAT HYPERTENSIVE BUT PT OTHERWISE ASYMPTOMATIC. PT VOIDING WELL INTO URINALK. MAINTAINING FLUID RESTRICTION. OTHERWISE, PT RESTING OFF AND ON.
--- NOTE | 2021-11-26 13:23 | NUR ---
HR CALL TO MD JONES TO REPORT PT HR CONTINUES TO BE AFLUTTER, HR 130's DESPITE GIVING ADDITIONAL ONE TIME 25MG PO METOPROLOL & 5MG PRN IV LOPRESSOR, WELL 25 MCG ONE TIME IV FENTANYL FOR PT's REPORTED BACK PAIN. MD JONES NOW W/ ORDER TO GIVE ONE TIME 20 MG IV CARDIZEM PUSH.
--- NOTE | 2021-11-26 16:19 | NUR ---
HR UPDATE PT HR DOWN TO MID 80's AFTER ONE TIME 20MG IV CARDIZEM PUSH GIVEN @ APPROX 1330. CALL TO MD JONES TO REPORT PT HR NOW BACK UP TO 130's AGAIN. MD JONES STATES SHE WILL REVIEW & PUT IN NEW ORDERS.
--- NOTE | 2021-11-26 18:03 | NUR ---
SHIFT SUMMARY PT A&O X4. INDEPENDENT IN RM. PT VSS. SPO2 > 92% ON RA. MONITOR SHOWING AFLUTTER, HR 130's MAJORITY OF SHIFT. PT HR DECREASE TO 80's W/ IV CARDIZEM PUSH GIVEN X1 THIS SHIFT (SEE EMAR). LITTLE TO NO IMPROVEMENT SEEN IN HR W/ IV LOPRESSOR GIVEN X2 THIS SHIFT (SEE EMAR & VS).
[2021-11-27 04:21] LABS: Alanine Aminotransfer (ALT/SGP 21 U/L (12-78); Albumin, Blood 3.2 g/dL (3.4-5.0); Alk Phos 61 U/L (50-136); Anion Gap 5 mmol/L (6-16); Aspartate Aminotrans (AST/SGOT 12 U/L (12-37); Bilirubin, Total 0.9 mg/dL (0.1-1.0); Blood Urea Nitrogen 22 mg/dL (8-24); Bun/Creatinine Ratio 24.2 (12.0-20.0); CO2, Blood 29 mmol/L (21-32); Calcium, Blood 9.3 mg/dL (8.5-10.1); Chloride, Blood 105 mmol/L (98-108); Creatinine, Blood 0.91 mg/dL (0.60-1.20); Globulin, Blood 3.3 g/dL (2.2-4.0); Glomerular Filtration Rate 94 (60-); Glucose, Blood 95 mg/dL (70-99); Magnesium, Blood 2.1 mg/dL (1.6-2.4); Phosphorus, Blood 3.6 mg/dL (2.5-4.9); Potassium, Blood 3.9 mmol/L (3.5-5.5); Sodium, Blood 139 mmol/L (136-145); Total Protein, Blood 6.5 g/dL (6.4-8.2)
--- NOTE | 2021-11-27 06:06 | NUR ---
SHIFT SUMMARY ASSUMED CARE OF PT AT 1900. PT IS A/OX4. HEART SOUNDS TACHY. LUNG SOUNDS CLEAR. PT HAD NO NEW COMPLAINTS EXCEPT FOR FEELING LIKE HE WAS EXERSIING. PT RATE WAS 130S UPON START OF SHIFT. PRN LOPRESSOR GIVEN WITH NO EFFECT. HOSPITALIST RAQUEL CALLED AND ORDERED 20 OF CARDIZEM IV PUSH. THIS WAS VERY EFFECTIVE. AFTER 2 HOURS HE INCREASED TO 130S AND MAINTAINED. HOSPITALIST LIDA NOTIFIED AND ORDRED PO CARDIZEM IN ATTEMPT TO CONTROL RATE WITH PO MEDICATION. THIS WAS NOT EFFECTIVE. AT 0330 HOSPITALIST WAS NOTIFED AGAIN THE RATE MAINTAINED IN THE 130S. HOSPITALIST LOOKED THROUGH CHART AND ORDERED AMIODORONE GTT. RATE DROPPED TO 116 FOR A COUPLE MIN BUT WENT BACK UP TO 130S. RATE REMAINS IN THE 130S BUT PT STATES THAT HE IS ASYMPTOMATIC.
--- NOTE | 2021-11-27 09:54 | NUR ---
CARE ASSUMPTION / CARDIZEM GTT INITIATED PT A&O X4. INDEPENDENT IN RM. VSS. SPO2 > 92% ON RA. MONITOR SHOWING AFLUTTER HR 130's, TOUCHING DOWN TO 100's OCCASSIONALLY AFTER SCHEDULED AM MEDICATIONS, BUT NOT SUSTAINING, INCREASING RIGHT BACK UP TO 130's. MD JONES W/ ORDER FOR ONE TIME CARDIZEM PUSH FOLLOWED BY INITIATING CARDIZEM GTT. CARDIZEM GTT INFUSING @ 5 MG/HR. HR 80's-90's.
--- NOTE | 2021-11-27 10:53 | NUR ---
CARDIZEM PT HR 60's-90's ON CARDIZEM GTT @ 5 MG/HR. MD JONES W/ ORDER TO GIVE PT HOME PO CARDIZEM DOSE OF 360 MG NOW & CONTINUE GTT FOR NEXT HR OR UNTIL ABLE TO TITRATE GTT OFF. STATES SHE WILL PUT FURTHER STANDING MAINTENANCE PO ORDERS.
--- NOTE | 2021-11-27 16:45 | NUR ---
SHIFT SUMMARY PT CONTINUES TO BE A&O X4. INDEPENDENT IN RM. VSS. SPO2 > 92% ON RA. MONITOR SHOWING AFLUTTER, HR 130's PRIOR TO CARDIZEM GTT INITIATION THIS SHIFT. CARDIZEM GTT TITRATED OFF & PT HR NOW AVERAGING 70's-90's, BUT ALSO BRIEFLY TOUCHING UP TO 110. PT REPORTING "MY HEART RATE IS NORMALLY LIKE 107." MD JONES W/ ORDER FOR ONE TIME PRN IV CARDIZEM PUSH FOR HR > 120, STILL AVAILABLE ON EMAR IF HR INCREASE AGAIN.
--- NOTE | 2021-11-27 17:31 | NUR ---
CARE ASSUMPTION/SHIFT SUMMARY THIS RN ASSUMED CARE FROM KEL GATES AT APPROX 1650. PATIENT IS ALERT AND ORIENTED. PATIENT REPORTS NO CHEST PAIN/PRESSURE, SHORTNESS OF BREATH OR PAIN. TELE AFLUTTER 80-90S CURRENTLY. PATIENT HAS A IV CARDIZEM PUSH IF NEEDED FOR HEART RATE SUSTAINING GREATER THAN 120. PATIENT IS INDEPDENT IN THE ROOM. CALL LIGHT IS WITHIN REACH AND BED IN LOWEST POSITION. PATIENT EATING DINNER IN ROOM. WILL CONITNUE TO MONITOR AND PROVIDE CARE UNTIL HAND OFF WITH NEXT SHIFT.
[2021-11-28 04:48] LABS: Albumin, Blood 3.1 g/dL (3.4-5.0); Anion Gap 6 mmol/L (6-16); Blood Urea Nitrogen 24 mg/dL (8-24); Bun/Creatinine Ratio 24.4 (12.0-20.0); CO2, Blood 30 mmol/L (21-32); Chloride, Blood 105 mmol/L (98-108); Creatinine, Blood 0.98 mg/dL (0.60-1.20); Glomerular Filtration Rate 86 (60-); Glucose, Blood 91 mg/dL (70-99); Phosphorus, Blood 3.3 mg/dL (2.5-4.9); Potassium, Blood 4.2 mmol/L (3.5-5.5); Sodium, Blood 141 mmol/L (136-145)
--- NOTE | 2021-11-28 06:46 | NUR ---
SHIFT SUMMARY PT IS ALERT AND ORIENTED. THERE HAVE BEEN NO ACUTE CHNAGES T/O THE NIGHT. VITALS ARE STABLE AND PT REMAINS ON ROOM AIR WITH SATS ABOVE 92%. PT IND IN ROOM. PT DENIES CHEST PAIN OR SOB. CALL LIGHT IS WITHIN REACH
--- NOTE | 2021-11-28 09:07 | NUR ---
CARE ASSUMPTION THIS RN ASSUMED CARE FROM NILSON GATES AT 0700. VSS. TELE AFLUTER 130. PATIENT IS ALERT AND ORIENTED X4. PERRLA. PATIENT IS INDEPDENT IN THE ROOM. PATIENT REPORTS NO PAIN. PATIENT REPORTS NO SHORTNESS OF BREATH. CLEAR LUNG SOUNDS. PATIENT REPORTS NO CHEST PAIN/PRESSURE. STRONG RADIAL AND PEDIS PULSES. MINIMAL EDEMA IN LOWER EXTREMITIES. PATIENT ABD IS SOFT NONTENDER AND ACTIVE. SKIN IS CLEAN DRY AND INTACT. SEE SHIFT ASSESSMENT FOR FURTHER DETAILS. THIS RN SPOKE WITH MD JONES ON THE PHONE ABOUT PATIENT INCREASE RATE. PO METOPROLOL GIVEN TO SEE IF THAT WILL HELP DECREASE THE PATIENT RATE, SINCE THE PLAN WAS FOR THE PATIENT TO GO HOME TODAY. WILL REASSESS PATIENT RATE AFTER AN HOUR OF PATIENT RECEIVING THE MEDICATION TO SEE IF THAT WILL HELP DECREASE IT AND INFORM MD JONES. THIS RN EDUCATED THE PATIENT ON EACH MEDICATION THIS AM AND THE IMPORTANCE OF TAKING THESE AT HOME. THIS RN ECUDATED THE PATIENT ON HEART FAILURE AND TAKING DAILY BLOOD PRESSURE, HEART RATE, AND WEIGHT. PATIENT VERABLIZED UNDERSTANDING. THIS RN EDUCATED THE PATIENT ON PROGRAMS THAT CAN HELP ASSIST WITH MEDICATION COST. PATIENT VERABLIZED THAT SON HAS HELPED SET HIM UP WITH GOOD RX. PATIENT CALL LIGHT WITHIN REACH AND BED IN LOWEST POSITION. THIS RN WILL CONTINUE TO DO HOURLY ROUNDING AND PROVIDE CARE. PLAN OF CARE UP TO DATE.
--- NOTE | 2021-11-28 10:21 | NUR ---
RATE CONTROL PATIENT HEART RATE IS TRENDING DOWN SINCE THIS AM. TELE IS AFLUTTER 98-110. PATIENT STATES "MY HEART RATE USUALLY RUNS AROUND 107". SO PATIENT HEART RATE AFTER THAT 25MG OF METOPROLOL TARTRATE PER MD ORDER SEEMED TO IMPROVE RATE CONTROL. SEE EMAR AND VITAL SIGN SECTION AND ORDERS.
--- NOTE | 2021-11-28 11:07 | NUR ---
EDUCATION THIS RN WENT OVER EDUCATION ON THE MEDICATIONS THAT THE PATIENT IS TAKING DURING THIS HOSPITAL STAY AND HIS HOME MEDICATIONS HE WAS TAKING. THIS RN PROVIDED HANDOUT INFORMATION. THIS RN WENT OVER HEART FAILURE EXACERBATION MATERIAL AND THE SIGNS AND SYMPTOMS OF AN EXACERBATION. PATIENT VERABLIZED UNDERSTANDING, AND THIS RN PROVIDED PRINTED HANDOUTS. THIS RN EDUCATED THE PATIENT ON AFLUTTER AND PROVIDED A PRINTED HANDOUT. PATIENT VERABLIZED UNDERSTANDING AND THAT HE WAS GOING TO MAKE LIFESTYLE CHANGES TO IMPROVE HIS CONDITION AND IS VERY MOTIVATED.
--- NOTE | 2021-11-28 12:56 | NUR ---
DISCHARGE THIS RN WENT OVER MEDICATIONS WITH THE PATIENT THAT HE WILL BE DISCHARGED ON. THIS RN PROVIDED PRINTED PAPER WORK OF EACH MEDICATION FOR PATIENT TO REFER TO. THIS RN CALLED IN THE MEDICATIONS TO [facility]. THIS RN PROVIDED THE PATIENT WITH THE WHIT COUPON. THIS RN WENT OVER HEART FAILURE EDUCATION AND PROVIDED HANDOUTS. THIS RN WENT OVER THE IMPORTANCE OF FOLLOW UP APPOINTMENT WITH PCP AND TO ESTABLISH A PCP AND CALL ON MONDAY. PATIENT VERBALIZED UNDERSTANDING. PATIENT HAS ALL PAPERWORK WITH PATIENT IN FOLDER. PATIENT HAS ALL BELONGINGS. IV REMOVED AND IV TIP IN PLACE. PATIENT LEFT WALKING OUT TO FAMILY MEMBER. PATIENT IS IN NO DISTRESS WHEN LEAVIN THE HOSPITAL.
== END 2021-11-28 13:00 | disposition home or self-care (01) | DRG 308 ==
LOC: ER 00:28 → ERHOLD 00:29 → PCU 10:16
PROVIDERS: Emergency Medicine; Internal Medicine; ADMIT Internal Medicine
DX: I48.92 Unspecified atrial flutter (principal); I50.33 Acute on chronic diastolic (congestive) heart failure; J44.9 Chronic obstructive pulmonary disease, unspecified; I34.0 Nonrheumatic mitral (valve) insufficiency; F17.210 Nicotine dependence, cigarettes, uncomplicated; I48.0 Paroxysmal atrial fibrillation; Z72.89 Other problems related to lifestyle; Z91.14 Patient's other noncompliance with medication regimen; Z79.01 Long term (current) use of anticoagulants; Z79.899 Other long term (current) drug therapy
CPT/HCPCS: 36415; 71045; 80053; 80069; 83735; 83880; 84484; 85025; 93005; 93010; 94640; 94664; 94760; 94762; 96374; 96375; 96376; 99285-25; A9270; G0378; J0282; J1940; J3010